=== PATIENT | male | born 1935 | race Caucasian/White ===

== ENCOUNTER 2019-07-19 08:45 | Emergency (ER) | payer MEDICARE, MEDICAID, SELFPAY ==
[2019-07-19] VITALS (82 sets, daily range): BP systolic 99–128; BP diastolic 60–78; PULSE 69–91; RESP 0–23; TEMP 37.4; O2SAT 86–98; BMI 20.5
--- NOTE | 2019-07-19 08:51 | ED_ITS ---
Entered by Shyann Miranda, acting as scribe for HPI - Neuro Symptoms/Deficit General: Chief Complaint: Neuro Symptoms/Deficit Stated Complaint: Seizure vs syncope Time Seen by Provider: 07/19/19 08:52 Source: patient and EMS Mode of arrival: EMS History of Present Illness: HPI Narrative: 84 yo male presents with nausea and vomiting post fall. pt states he was laying in bed when his symptoms started and the half-way has a disease going around. pt states he did not hit his head. 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 pt denies any other symptoms at this time. He is awake and alert at time of presentation and maitained his baseline mental status throughout his stay. 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) Timing confirmed by: other (half-way staff) History of same: No Severity: mild Relieving factors: none Exacerbating factors: none Context: sudden onset Associated symptoms: Reports cough, nausea, vomiting and other (fall at half-way); Deny chest pain, headache(s), malaise, syncope or vertigo Treatments Prior to Arrival: none Review of Systems General: Reports: 10 or more systems reviewed and unremarkable except in HPI and below Const: Denies: fever, chills, body aches, fatigue, malaise or night sweats Eyes: Denies: change in vision or blurry vision ENMT: Denies: throat pain, oral sores/lesions, dental pain, nasal discharge or nasal congestion Card: Denies: chest pain, palpitations, irregular heart rhythm, edema, syncope, shortness of breath on exertion, shortness of breath when lying down or leg pain with exertion Resp: Reports: productive cough GI: Reports: nausea and vomiting : Denies: flank pain, difficulty urinating, painful urination, urinary frequency, urinary urgency, urinary incontinence or blood in urine Musc: Denies: neck pain, back pain, extremity pain, extremity swelling, joint pain or joint swelling Skin/Breast: Denies: rash, itching or redness Neuro: Denies: headache, numbness in extremities, weakness in extremities, changes in sensation, lack of coordination, difficulty walking, frequent falls, dizziness, vertigo or confusion Psych: Denies: anxiety, depression, loss of interest, visual hallucinations, auditory hallucinations, suicidal ideation or homicidal ideation Endo: Denies: excessive urination, excessive thirst, tired all the time or c old intolerance [place]/Lymph: Denies: easy bruising, easy bleeding, petechiae, enlarged lymph nodes or tender lymph nodes PFSH ED PFSH: Statuses (acute, chronic, etc) shown below reflect problem list status as previously entered and may not be historically accurate Surgical History History of surgical removal of intestinal structure (Acute) Social History Smoking and tobacco status: never smoked Physical Exam Const: COMMON NORMALS: no apparent distress GENERAL APPEARANCE: cooperative and comfortable ORIENTATION/CONSCIOUSNESS: Yes awake, Yes oriented to person, Yes oriented to place and Yes oriented to time HENMT: COMMON NORMALS: normocephalic, head/scalp atraumatic, hearing grossly normal bilaterally, external ears normal, EAC's normal, TM's normal bilaterally, nasal mucous membranes and turbinates normal, moist oral mucous membranes and oropharynx normal HEAD & SCALP: normocephalic and atraumatic NOSE: nasal mucous membranes and turbinates normal EXTERNAL EAR: Yes external ears normal EXTERNAL AUDITORY CANAL: EAC's normal TYMPANIC MEMBRANE: TM's normal bilaterally Eye: COMMON NORMALS: PERRL, EOMs intact bilaterally, conjunctivae normal and no scleral icterus CONJUNCTIVA: Yes conjunctivae normal PUPIL: Yes PERRL Neck/C-Spine: COMMON NORMALS: full ROM, no lymphadenopathy, supple and no JVD Lymph: LYMPHATIC: no lymphadenopathy noted and no lymphedema noted Resp: COMMON NORMALS: normal respiratory effort, no retractions, no use of accessory muscles and clear to auscultation bilaterally AUSCULTATION: clear to auscultation bilaterally Cardio: COMMON NORMALS: no JVD, regular rate, regular rhythm and no murmurs RATE: regular rate RHYTHM: regular rhythm GI: COMMON NORMALS: soft to palpation and no hepatosplenomegaly AUSCULTATION: Yes normoactive bowel sounds PALPATION: Yes soft, No tender, No guarding and Yes no hepatosplenomegaly Extremity: COMMON NORMALS: normal to inspection, normal capillary refill, no clubbing, cyanosis or edema, no calf tenderness and no pedal edema Neuro: SENSORIUM/ORIENTATION: Yes oriented to person, Yes oriented to place and Yes oriented to time Skin: COMMON NORMALS: no rashes or lesions noted GENERAL SKIN EXAM: no rashes or lesions noted Course ED course: new small questionable area in the brain- d/c to NH will likely need follow-up MRI. Vital Signs: Vital signs: Vital Signs Temperature 99.4 F 07/19/19 08:46 Pulse Rate 73 07/19/19 16:35 Respiratory Rate 20 H 07/19/19 16:35 Blood Pressure 122/70 07/19/19 16:35 Pulse Oximetry 96 07/19/19 16:35 MDM - Neuro Symptoms/Deficit Lab Data: Labs: Lab Results 07/19/19 07/19/19 07/19/19 Range/Units 09:00 10:05 10:05 WBC (4.0-10.0) 10^3/ uL RBC (4.1-5.3) 10^6/u L Hgb (11.7-16.6) g/dL Hct (42.0-52.0) % MCV (80-94) fL MCH (28.0-34.0) pg MCHC (30.0-36.0) g/dL RDW (12.1-15.1) % Plt Count (130-400) 10^3/c mm MPV (7.4-10.4) fL Neut % (Auto) % Lymph % (Auto) % [place] % (Auto) % Eos % (Auto) % Baso % (Auto) % Neut # (Auto) (1.8-7.7) 10^3/u L Lymph # (Auto) (0.8-4.8) 10^3/u L [place] # (Auto) (0.2-0.9) 10^3/u L Eos # (Auto) (0.0-0.8) 10^3/u L Baso # (Auto) (0.0-0.1) 10^3/u L Nucleated RBC % (a uto) % Nucleated RBCs # /100WBC Sodium Cancelled 134 L Potassium Cancelled 4.3 Chloride Cancelled 97 L Carbon Dioxide Cancelled 21 L Anion Gap Cancelled 20.3 H BUN Cancelled 15 Creatinine Cancelled 0.9 GFR Calculation Cancelled Glucose Cancelled 167 H Calcium Cancelled 8.6 Total Bilirubin Cancelled 0.3 AST Cancelled 32 ALT Cancelled 19 Alkaline Phosphata se Cancelled 193 H Creatine Kinase 61 (39-308) U/L Total Protein Cancelled 6.9 Albumin Cancelled 3.2 L Globulin Cancelled 3.7 Urine Color (Yellow) Urine Appearance (CLEAR) Urine pH (5-7) Ur Specific Gravit y (1.005-1.030) Urine Protein (Negative) Urine Glucose (UA) (Normal) Urine Ketones (Negative) Urine Occult Blood (Negative) Urine Nitrate (Negative) Urine Bilirubin (NEGATIVE) Urine Urobilinogen (Negative) mg/dL Ur Leukocyte Bessie ase (Negative) 07/19/19 07/19/19 Range/Units 10:05 11:20 WBC 7.2 (4.0-10.0) 10^3/ uL RBC 4.50 (4.1-5.3) 10^6/u L Hgb 10.3 L (11.7-16.6) g/dL Hct 34.6 L (42.0-52.0) % MCV 76.9 L (80-94) fL MCH 22.9 L (28.0-34.0) pg MCHC 29.8 L (30.0-36.0) g/dL RDW 18.6 H (12.1-15.1) % Plt Count 242 (130-400) 10^3/c mm MPV 9.8 (7.4-10.4) fL Neut % (Auto) 84.7 % Lymph % (Auto) 8.8 % [place] % (Auto) 5.8 % Eos % (Auto) 0.0 % Baso % (Auto) 0.3 % Neut # (Auto) 6.1 (1.8-7.7) 10^3/u L Lymph # (Auto) 0.6 L (0.8-4.8) 10^3/u L [place] # (Auto) 0.4 (0.2-0.9) 10^3/u L Eos # (Auto) 0.0 (0.0-0.8) 10^3/u L Baso # (Auto) 0.0 (0.0-0.1) 10^3/u L Nucleated RBC % (a uto) 0 % Nucleated RBCs # 0.0 /100WBC Sodium Potassium Chloride Carbon Dioxide Anion Gap BUN Creatinine GFR Calculation Glucose Calcium Total Bilirubin AST ALT Alkaline Phosphata se Creatine Kinase (39-308) U/L Total Protein Albumin Globulin Urine Color Yellow (Yellow) Urine Appearance Clear (CLEAR) Urine pH 5.0 (5-7) Ur Specific Gravit y 1.015 (1.005-1.030) Urine Protein Neg (Negative) Urine Glucose (UA) Norm (Normal) Urine Ketones Negative (Negative) Urine Occult Blood Neg (Negative) Urine Nitrate Negative (Negative) Urine Bilirubin Neg (NEGATIVE) Urine Urobilinogen Norm (Negative) mg/dL Ur Leukocyte Bessie ase Negative (Negative) Imaging Data^: CXR: Radiologist's impression: [place] [address] XRay Report Signed Patient: Lee Ortega #: [id number] : 6Acct#:[id number] Age/Sex: 84 / MADM Date: 07/19/19 Loc: [facility]/Bed: Attending Dr: Ordering Provider/Ordering MD: Gerhard Calero DO Date of Service: 07/19/19 Procedure(s): XR chest 1V portable [id number] Accession Number(s): [id number] Report Number: [id number] WS: [id number] PORTABLE CHEST HISTORY: dyspnea/cough COMPARISON: 03/03/2019 Minimal atelectasis or scar in the RIGHT lower lung field. Improved aeration and resolved LEFT pleural effusion at the LEFT lung base since 03/03/2019. No pneumonia. Normal vasculature. No pleural effusion or pneumothorax. Cardiac size: Normal. Mediastinum/Aorta: Mild atherosclerosis aorta. No osseous abnormality seen. XR/XR chest 1V portable [id number] IMPRESSION: 1. Mild chronic emphysema. 2. Stable subsegmental atelectasis or scar in the RIGHT lower lung. 3. No acute pneumonia. Dictated By:Latasha Lucero DO Signed By:Latasha Lucero DOSigned Date/Time:07/19/19926 CT Head: Radiologist's impression: [place] [address] CT Scan Report Signed Patient: Lee Ortega #: [id number] : 6Acct#:[id number] Age/Sex: 84 / MADM Date: 07/19/19 Loc: [facility]/Bed: Attending Dr: Ordering Provider/Ordering MD: Gerhard Calero DO Date of Service: 07/19/19 Procedure(s): CT head wo con* [id number] Accession Number(s): [id number] Report Number: [id number] WS: [id number] CT HEAD TECHNIQUE: Noncontrast CT of the head obtained from the skullbase to the vertex. CLINICAL INFORMATION: fall, LOC COMPARISON: None. DLP: 868.[address] scans at [facility] use at least one of these dose optimization techniques: automated exposure control; mA and/or kV adjustment per patient size (includes targeted exams where dose is matched to clinical indication); or iterative reconstruction. FINDINGS: No evidence of intracranial hemorrhage or mass effect. Ventricular system and basal cisterns are patent. Mild small vessel changes with moderate parenchymal volume loss. Small amount low-attenuation change in the posterior left occipital lobe nonspecific but likely chronic ischemia. No extra-axial fluid collections. No evidence of mass or mass effect. Normal boss-white differentiation. Small amount of fluid left maxillary sinus. Mastoid air cells are well aerated.. CT/CT head wo con* [id number] IMPRESSION: 1. No evidence of intracranial hemorrhage or mass effect. 2. Mild small vessel changes with moderate parenchymal volume loss. 3. 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 This can be followed up with MRI to exclude metastatic disease considering history of malignancy. 4. Small amount of fluid in the left maxillary sinus. Dictated By:Kenyon Dhaliwal MD Signed By:Kenyon Dhaliwaligned Date/Time:07/19/19 1018 Discharge Plan Discharge Patient Disposition: Home, Self-Care Clinical Impression: Syncope, Cecal cancer Condition: Stable Prescriptions: No Action multivitamin Tablet 1 tab PO DAILY RF: 0 acetaminophen 325 mg Tablet 650 mg PO QID PRN (Reason: Pain) RF: 0 Zofran 4 mg Tablet 4 mg PO Q6H PRN (Reason: nausea) RF: 0 Thera-Tabs Tablet 1 tab PO DAILY RF: 0 famotidine 20 mg Tablet 20 mg PO BID RF: 0 Milk of Magnesia 400 mg/5 mL Suspension 30 ml PO DAILY PRN (Reason: Constipation) RF: 0 ferrous sulfate 325 mg (65 mg iron) Tablet 325 mg PO DAILY RF: 0 Fleet Enema 19-7 gram/118 mL Enema 118 ml [place] DAILY PRN (Reason: Constipation) RF: 0 guaifenesin 400 mg Tablet 400 mg PO Q4H PRN (Reason: Mucus) RF: 0 Florastor 250 mg Capsule 250 mg PO BID RF: 0 Januvia 100 mg tablet 100 mg PO DAILY RF: 0 Discharge Orders: Discharge Order (Routine); Ordered 07/19/19 Ordered By: Gerhard Calero Referrals: Royce Vides DO [Primary Care Provider] - Discharge Diet: Usual diet Discharge Activity: Increase activity as tolerated Activity Restrictions/Additional Instructions: Return to the half-way. Small area of potential metastasis noted on CT patient requires nonemergent MRI with IV contrast for further evaluation. Discharge Date/Time: 07/19/19 17:58 Coding Level of Care Code ED Sustain Engineer for [facility] Fwd The documentation recorded by the Ruben damon Bridget Annette, accurately reflects the service I personally performed and the decisions made by Vee barney Curtis L, DO Jul 19, 2019 08:45
--- NOTE | 2019-07-19 08:54 | ECG_ITS ---
Measurements Intervals [place] Rate: 79 P: 62 TN: 191 QRS: -78 QRSD: 123 T: 81 QT: 407 QTc: 467 SINUS RHYTHM WITH OCCASIONAL VENTRICULAR PREMATURE COMPLEXES LEFT ANTERIOR FASCICULAR BLOCK [QRS AXIS <= -45, QR IN I, RS IN II] SEPTAL MYOCARDIAL INFARCTION , OF INDETERMINATE AGE [40+ ms Q WAVE IN V1/V2] Compared to ECG 02/17/2019 06:59:40 Ventricular premature complex(es) now present Myocardial infarct finding now present First degree AV block no longer present Prolonged QT interval no longer present Electronically Signed On 07-19-2019 20:04:43 CUSTOMER RESPONSE REPRESENTATIVE by Anahi Youssef M.D. [email or web address]
--- NOTE | 2019-07-19 08:54 | XR_ITS ---
WS: [id number] PORTABLE CHEST HISTORY: dyspnea/cough COMPARISON: 03/03/2019 Minimal atelectasis or scar in the RIGHT lower lung field. Improved aeration and resolved LEFT pleura l effusion at the LEFT lung base since 03/03/2019. No pneumonia. Normal vasculature. No pleural effusi on or pneumothorax. Cardiac size: Normal. Mediastinum/Aorta: Mild atherosclerosis aorta. No osseous abnormality seen. XR/XR chest 1V portable [id number] IMPRESSION: 1. Mild chronic emphysema. 2. Stable subsegmental atelectasis or scar in the RIGHT lower lung. 3. No acute pneumonia.
--- NOTE | 2019-07-19 09:28 | CT_ITS ---
WS: [id number] CT HEAD TECHNIQUE: Noncontrast CT of the head obtained from the skullbase to the vertex. CLINICAL INFORMATION: fall, LOC COMPARISON: None. DLP: 868.[address] scans at [facility] use at least one of these dose optimization techniques: automat ed exposure control; mA and/or kV adjustment per patient size (includes targeted exams where dose is matched to clinical indication); or iterative reconstruction. FINDINGS: No evidence of intracranial hemorrhage or mass effect. Ventricular system and basal cisterns are marsh nt. Mild small vessel changes with moderate parenchymal volume loss. Small amount low-attenuation andrzej nge in the posterior left occipital lobe nonspecific but likely chronic ischemia. No extra-axial flui d collections. No evidence of mass or mass effect. Normal boss-white differentiation. Small amount of fluid left maxillary sinus. Mastoid air cells are well aerated.. CT/CT head wo con* [id number] IMPRESSION: 1. No evidence of intracranial hemorrhage or mass effect. 2. Mild small vessel changes with moderate parenchymal volume loss. 3. 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 This can be followed up with MRI to exclude metastatic disease considering history of malignancy. 4. Small amount of fluid in the left maxillary sinus.
[2019-07-19 10:33] LABS: Alanine Aminotransferase 19 U/L (0-41); Albumin Level 3.2 g/dL (3.5-5.2); Alkaline Phosphatase 193 IU/L (40-130); Anion Gap 20.3 (5-19); Aspartate Amino Transferase 32 U/L (0-40); Blood Urea Nitrogen 15 mg/dL (8-23); Calcium 8.6 mg/dL (8.5-10.5); Carbon Dioxide 21 mmol/L (22-29); Chloride 97 mmol/L (98-107); Globulin 3.7 g/dL (1.3-4.6); Glucose 167 mg/dL (65-115); Potassium 4.3 mmol/L (3.5-5.1); Sodium 134 mmol/L (136-145); Total Bilirubin 0.3 mg/dL (0.15-1.2); Total Protein 6.9 g/dL (6.6-8.7)
[2019-07-19 10:34] LABS: Creatine Phosphokinase 61 U/L (39-308)
[2019-07-19 10:38] LABS: Basophils % 0.3 %; Hematocrit 34.6 % (42.0-52.0); Hemoglobin 10.3 g/dL (11.7-16.6); Lymphocytes # 0.6 10^3/uL (0.8-4.8); Lymphocytes % 8.8 %; Mean Corpuscular HGB Conc 29.8 g/dL (30.0-36.0); Mean Corpuscular Hemoglobin 22.9 pg (28.0-34.0); Mean Corpuscular Volume 76.9 fL (80-94); Mean Platelet Volume 9.8 fL (7.4-10.4); Monocytes # 0.4 10^3/uL (0.2-0.9); Monocytes % 5.8 %; Neutrophils # 6.1 10^3/uL (1.8-7.7); Neutrophils % 84.7 %; Nucleated Red Blood Cells % 0 %; Platelet Count 242 10^3/cmm (130-400); Red Cell Distribution Width 18.6 % (12.1-15.1); White Blood Count 7.2 10^3/uL (4.0-10.0)
[2019-07-19 11:48] LABS: Add Urine Microscopic? NO
[2019-07-19 11:51] LABS: Bilirubin Urine Neg (NEGATIVE); Blood Urine Neg (Negative); Glucose Urine UA Norm (Normal); Ketones Urine Negative (Negative); Leukocyte Esterase Urine Negative (Negative); Nitrate Urine Negative (Negative); Protein Urine Neg (Negative); Specific Gravity, Urine 1.015 (1.005-1.030); Urine Appearance Clear (CLEAR); Urine Color Yellow (Yellow); Urobilinogen Urine Norm (Negative)
== END 2019-07-19 17:58 | disposition home or self-care (01) ==
PROVIDERS: Emergency Provider Family Medicine; Family Provider Family Medicine; PCP Family Medicine
DX: R55 Syncope and collapse (principal); C18.0 Malignant neoplasm of cecum
CPT/HCPCS: 36415; 70450; 71045; 80053; 81003; 82550; 85025; 93005; 99284